=== PATIENT | male | born 1960 | race Caucasian/White ===

== ENCOUNTER → 2021-07-09 | Outpatient (CLI) | payer MEDICAID ==
[~2021-07-09] MED LIST: ACCU5TAB7; ACET65TA; AMLO10TA; CEFT500T; NICO21DI4; PRED10TA2; PRED15SO3; [UNRECOGNIZED DRUG - OTHER]
== END ==
LOC: M LABSMTC 10:07
PROVIDERS: ATTEND Anesthesiology
DX: Z01.818 Encounter for other preprocedural examination (principal); Z11.52 Encounter for screening for COVID-19

== ENCOUNTER 2021-07-14 07:14 | Day surgery (SDC) | payer OTHER ==
[~2021-07-14] VITALS: Ht 167.6 cm; Wt 108.0 kg
[~2021-07-14 07:14] MED LIST changes: +LR 1,000 ML IV ONE; +ceFAZolin SOD 2 GM in IV 1 EA IV ONE
[2021-07-14] MEDS ORDERED: LIDOCAINE 2% 100MG/5ML SDV (FOR ANES.) As Ordered ONE (07:54)
[2021-07-14] MEDS ORDERED: MIDAZOLAM INJ 2MG/2ML VIAL (J2250 PER 1MG) As Ordered ONE (07:55)
[2021-07-14] MEDS ORDERED: propofoL 200 MG/20 ML VIAL As Ordered ONE (07:55)
[2021-07-14] MEDS ORDERED: fentaNYL 100 MCG/2 ML INJECTION (J3010) As Ordered ONE ×2 (07:56→09:24)
[2021-07-14] MEDS ORDERED: BUPIVACAINE/EPIN 0.25% 30 ML VIAL As Ordered ONE (08:25)
[2021-07-14] MEDS ORDERED: BUPIVACAINE HCL 0.25% 10ML VIAL As Ordered ONE (08:25)
[2021-07-14] MEDS ORDERED: BUPIVACAINE LIPOSOME/PF 1.3% 20ML VIAL (13.3MG/ML)(EXPAREL)(C9290 PER1MG) As Ordered ONE (08:26)
[2021-07-14] MEDS ORDERED: ALBUTEROL 6.7GM INHALER **FOR ANES. CART/OMNICELL ONLY As Ordered ONE (08:49)
[2021-07-14] MEDS ORDERED: ROCURONIUM BROMIDE 50 MG/5 ML VIAL As Ordered ONE ×2 (08:56→09:31)
[2021-07-14] MEDS ORDERED: ePHEDrine SULFATE 25 MG/5 ML(5MG/ML) SYRINGE As Ordered ONE (08:57)
[2021-07-14] MEDS ORDERED: PHENYLephrine 500MCG 5ML (100MCG/ML) SYRINGE As Ordered ONE (09:02)
[2021-07-14] MEDS ORDERED: ACETAMINOPHEN 1000MG 100ML IV BTL (OFIRMEV) (J0131 PER 10MG) As Ordered ONE (09:05)
[2021-07-14] MEDS ORDERED: dexameTHASONE 4 MG/ML 1ML VIAL (J1100 PER 1MG) As Ordered ONE (09:15)
[2021-07-14] MEDS ORDERED: METOCLOPRAMIDE INJ 10MG/2ML VIAL (J2765 PER 1) As Ordered ONE (09:17)
[2021-07-14] MEDS ORDERED: ONDANSETRON 4MG/2ML VIAL As Ordered ONE (09:18)
[2021-07-14] MEDS ORDERED: KETOROLAC 60MG 2ML VIAL As Ordered ONE (09:44)
[2021-07-14] MEDS ORDERED: LR 1,000 ML IV SCH (10:25)
[2021-07-14] MEDS ORDERED: fentaNYL 100 MCG/2 ML INJECTION (J3010) IV PRN (10:25)
[2021-07-14] MEDS ORDERED: oxyCODONE 5MG TAB PO PRN (10:25)
[2021-07-14] MEDS ORDERED: SUGAMMADEX SODIUM 500 MG/5 ML VIAL (BRIDION) As Ordered ONE (10:54)
[2021-07-14] MEDS ORDERED: SEVOFLURANE INHAL SOLN 250 ML BTL As Ordered ONE (11:03)
[2021-07-14 11:54] VITALS: BP 136/74
--- NOTE | 2021-07-14 19:59 | ECGEPIP ---
[facility] Test Date: 2021-07-14 Pat Name: NORMA GUZMAN Department: Room: - Gender: Male [employer]ter [employer] Forms: CELY : 1960 Requested By: Lul Moncada Order Number: [id number] Reading MD: Jose A Osman Measurements Intervals [place] Rate: 82 P: 74 AL: 132 QRS: 63 QRSD: 84 T: 26 QT: 352 QTc: 411 Interpretive Statements Normal sinus rhythm with sinus arrhythmia Comparison tracing not on file Electronically Signed on 07-14-2021 19:59:12 EDT by Jose A Osman
--- NOTE | 2021-07-31 14:31 | RO ---
OPERATIVE NOTE DATE OF OPERATION: 07/14/2021 PREOPERATIVE DIAGNOSIS: Umbilical hernia. POSTOPERATIVE DIAGNOSIS: Umbilical hernia. PROCEDURE: Umbilical hernia repair with Proceed ventral patch. SURGEON: Pio Roblero Jr, MD [employer]: ANESTHESIA: General endotracheal anesthesia. EBL: Minimal. FLUIDS: Crystalloid. DESCRIPTION OF PROCEDURE: The patient was brought to the operating room, was given general anesthesia. After adequate anesthesia and preoperative antibiotics were given the patient was prepped and draped in usual sterile fashion. Unfortunately the patient had developed some ulceration at his umbilicus and had a developing skin wound on his umbilicus. More importantly it had attenuated his skin so much that I felt that he would have significantly compromised vascular supply to his skin if we left the umbilicus intact. Thus, an elliptical incision around the umbilicus was created in transverse manner and electrocautery was used to cut through dermis through underlying subcutaneous tissue down to the hernia sac and fascia itself. This subcutaneous tissue was mobilized and hernia sac was transected at the level of the fascia. There was some preperitoneal fat coming through as well as omentum that was transected in this area and ligated with heavy Vicryl ties. Once the fascial defect was appreciated I felt this was amenable to treatment with Proceed ventral patch which I placed into the peritoneal cavity and making sure that it was abutting the peritoneum circumferentially. The fascial closure was performed with multiple [id number] #0 Ethibond sutures and the tails of the mesh were sutured superiorly and inferiorly. Subcutaneous tissue was brought together with 2-0 Vicryl, 3-0 Vicryl was used to approximate more superficial subcutaneous tissue and 4-0 Vicryl was used to approximate the skin. Steri-Strips and dry, sterile dressing were applied. The patient was awakened, extubated and brought to recovery room awake, alert, and hemodynamically stable. Sponge and needle counts correct x2.
== END 2021-07-14 12:25 | disposition home or self-care (01) ==
LOC: M SDC 07:14
PROVIDERS: ATTEND Surgery
DX: K42.9 Umbilical hernia without obstruction or gangrene (principal); E66.01 Morbid (severe) obesity due to excess calories; Z68.38 Body mass index [BMI] 38.0-38.9, adult; F17.210 Nicotine dependence, cigarettes, uncomplicated
CPT/HCPCS: 49585; 88302; 93005; C1781; C9290; J0131; J0690; J1100; J1885; J2250; J2370; J2405; J2765; J3010

== ENCOUNTER → 2022-12-12 | Outpatient (REF) | payer OTHER ==
[~2022-12-12] MED LIST changes: -LR 1,000 ML IV ONE; -ceFAZolin SOD 2 GM in IV 1 EA IV ONE
== END ==
LOC: M LAB REF 18:12
PROVIDERS: ATTEND Physician Assistant
DX: L02.31 Cutaneous abscess of buttock (principal)

== ENCOUNTER → 2023-04-21 | Outpatient (REF) | payer OTHER | LOC: M LAB REF 12:18 | PROVIDERS: ATTEND Student in an Organized Health Care Education/Training Program | DX: L02.212 Cutaneous abscess of back [any part, except buttock and flank] (principal) ==

== ENCOUNTER → 2024-05-22 | Outpatient (REF) | payer OTHER ==
[2024-05-22 16:21] LABS: ALBUMIN 2.9 G/DL (3.2-5.2); ALKALINE PHOSPHATASE 60 U/L (46-116); ALT/SGPT 17 U/L (7.0-40); AST/SGOT 14 U/L (<34); BILIRUBIN,TOTAL 0.3 MG/DL (0.3-1.2); BLOOD UREA NITROGEN 20 MG/DL (9-23); CALCIUM LEVEL 8.7 MG/DL (8.3-10.6); CARBON DIOXIDE LEVEL 30 MMOL/L (20-31); CHLORIDE LEVEL 100 MMOL/L (98-107); CHOLESTEROL LEVEL 155 MG/DL (<200); CHOLESTEROL RISK RATIO 5.11 (<5); CREATININE FOR GFR 0.91 MG/DL (0.70-1.30); GLOMERULAR FILTRATION RATE > 60.0 (>49); GLUCOSE, FASTING 106 MG/DL (74-106); HDL CHOLESTEROL 30.3 MG/DL (>40); LDL CHOLESTEROL 105.1 MG/DL (<100); NON-HDL-C 124.7 MG/DL; POTASSIUM SERUM 4.5 MMOL/L (3.5-5.1); SODIUM LEVEL 134 MMOL/L (136-145); TOTAL PROTEIN 7.9 G/DL (5.7-8.2); TRIGLYCERIDES LEVEL 98 MG/DL (<150)
[2024-05-22 16:24] LABS: THYROID STIMULATING HORMONE 0.713 uIU/ML (0.55-4.78)
== END ==
LOC: M LAB REF 13:14
PROVIDERS: ATTEND Family Medicine Addiction Medicine
DX: Z13.228 Encounter for screening for other metabolic disorders (principal)

== ENCOUNTER → 2024-12-07 | Outpatient (CLI) | payer OTHER ==
[2024-12-07 16:12] LABS: HEMATOCRIT 52.2 % (42.0-52.0); HEMOGLOBIN 16.7 g/dl (13.5-17.5); MEAN CORPUSCULAR HEMOGLOBIN 28.7 pg (27.0-33.0); MEAN CORPUSCULAR VOLUME 89.8 fl (80.0-96.0); PLATELET COUNT, AUTOMATED 222 10^3/uL (150-450); RED BLOOD COUNT 5.81 10^6/uL (4.30-6.10)
[2024-12-07 16:39] LABS: ALBUMIN 2.9 G/DL (3.2-5.2); ALKALINE PHOSPHATASE 62 U/L (40-129); ALT/SGPT 20 U/L (7.0-40); AST/SGOT 19 U/L (<34); BILIRUBIN,TOTAL 0.4 MG/DL (0.3-1.2); BLOOD UREA NITROGEN 18 MG/DL (9-23); CALCIUM LEVEL 9.8 MG/DL (8.3-10.6); CARBON DIOXIDE LEVEL 31 MMOL/L (20-31); CHLORIDE LEVEL 101 MMOL/L (98-107); CREATININE FOR GFR 0.89 MG/DL (0.70-1.30); GLOMERULAR FILTRATION RATE > 60.0 (>49); GLUCOSE, FASTING 118 MG/DL (74-106); POTASSIUM SERUM 4.1 MMOL/L (3.5-5.1); SODIUM LEVEL 138 MMOL/L (136-145); TOTAL PROTEIN 8.7 G/DL (5.7-8.2)
[2024-12-07 16:59] LABS: HEPATITIS B SURFACE ANTIGEN NEGATIVE (NEGATIVE)
[2024-12-07 17:12] LABS: HIV 1&2 SCREEN NEGATIVE (NEGATIVE)
[2024-12-07 17:20] LABS: HEPATITIS C VIRUS ABY INDEX 0.07 INDEX (<0.8)
== END ==
LOC: M RAD 13:04
PROVIDERS: ATTEND Physician Assistant
DX: L73.2 Hidradenitis suppurativa (principal); D48.9 Neoplasm of uncertain behavior, unspecified

== ENCOUNTER → 2024-12-26 | Outpatient (CLI) | payer OTHER ==
[~2024-12-26] MED LIST changes: +LIDOCAINE 1% MDV 20ML VIAL As Ordered ONE
[2024-12-26 14:20] VITALS: BP 163/93; TEMP 98.9; O2SAT 93
== END ==
LOC: M IRPRO 14:09
PROVIDERS: ATTEND Physician Assistant
DX: D48.9 Neoplasm of uncertain behavior, unspecified (principal); D17.24 Benign lipomatous neoplasm of skin and subcutaneous tissue of left leg

== ENCOUNTER 2025-02-15 06:46 | Day surgery (SDC) | payer OTHER ==
[~2025-02-15] VITALS: Ht 167.6 cm; Wt 95.5 kg
[~2025-02-15 06:46] MED LIST changes: +DOXY100T PO; -LIDOCAINE 1% MDV 20ML VIAL As Ordered ONE
[2025-02-15] MEDS ORDERED: LR 1,000 ML IV SCH (07:00)
[2025-02-15] MEDS ORDERED: LIDOCAINE 2% 100MG/5ML SDV (FOR ANES.) As Ordered ONE (07:27)
[2025-02-15] MEDS ORDERED: KETOROLAC 30 MG/ML 1ML VIAL As Ordered ONE (07:27)
[2025-02-15] MEDS ORDERED: fentaNYL 100 MCG/2 ML INJECTION As Ordered ONE (07:27)
[2025-02-15] MEDS ORDERED: propofoL 200 MG/20 ML VIAL As Ordered ONE (07:27)
[2025-02-15] MEDS ORDERED: ROCURONIUM BROMIDE 50MG/5ML VIAL As Ordered ONE (07:27)
[2025-02-15] MEDS ORDERED: MIDAZOLAM INJ 2MG/2ML VIAL As Ordered ONE (07:27)
[2025-02-15] MEDS ORDERED: SUGAMMADEX SODIUM 500 MG/5 ML VIAL (BRIDION) As Ordered ONE (07:27)
[2025-02-15] MEDS ORDERED: ONDANSETRON 4MG 2ML VIAL As Ordered ONE (07:27)
[2025-02-15] MEDS: ceFAZolin SOD 2 GM IV ONCE IV ONE (07:42)
[2025-02-15] MEDS ORDERED: dexmedeTOMIDine (4MCG/ML)200MCG/50ML BTL (PRECEDEX) As Ordered ONE (08:13)
[2025-02-15] MEDS ORDERED: ACETAMINOPHEN 1000MG/100ML IV BAG As Ordered ONE (08:24)
[2025-02-15 09:14] VITALS: BP 93/55; TEMP 97.1; O2SAT 92
== END 2025-02-15 09:33 | disposition home or self-care (01) ==
LOC: M SDC 06:46
PROVIDERS: ATTEND Surgery
DX: L72.0 Epidermal cyst (principal); Z79.2 Long term (current) use of antibiotics; Z87.891 Personal history of nicotine dependence
CPT/HCPCS: 11406; 12032; 88304; J0131; J0665; J0690; J1100; J1885; J2250; J2405; J3010

== ENCOUNTER → 2025-07-05 | Outpatient (CLI) | payer OTHER | LOC: M RAD 13:12 | PROVIDERS: ATTEND Family Medicine Addiction Medicine | DX: R09.02 Hypoxemia (principal) ==

== ENCOUNTER → 2025-08-05 | Outpatient (REF) | payer OTHER | LOC: M SFHCDERM 17:46 | PROVIDERS: ATTEND Physician Assistant | DX: L73.2 Hidradenitis suppurativa (principal) ==